=== PATIENT | male | born 1995 | race Caucasian/White ===

== ENCOUNTER 2018-03-09 12:35 | Emergency (ER) | payer MEDICAID ==
[~2018-03-09] VITALS: Ht 180.3 cm; Wt 74.8 kg
[2018-03-09 12:50] VITALS: BP 159/91
== END 2018-03-09 15:11 | disposition home or self-care (01) ==
LOC: ER 12:35
DX: S62.111A Displaced fracture of triquetrum [cuneiform] bone, right wrist, initial encounter for closed fracture (principal); S60.221A Contusion of right hand, initial encounter; W22.8XXA Striking against or struck by other objects, initial encounter; Y93.89 Activity, other specified; Y99.8 Other external cause status; Y92.89 Other specified places as the place of occurrence of the external cause
CPT/HCPCS: 29125; 73090; 73130

== ENCOUNTER 2019-07-28 15:22 | Emergency (ER) | payer MEDICAID ==
[~2019-07-28] VITALS: Ht 182.9 cm; Wt 81.6 kg
[2019-07-28 16:06] VITALS: BP 149/90
== END 2019-07-28 18:03 | disposition home or self-care (01) ==
LOC: ER 15:22
DX: F41.0 Panic disorder [episodic paroxysmal anxiety] (principal)
CPT/HCPCS: 71046; 93005